=== PATIENT | male | born 1980 | race Caucasian/White ===

== ENCOUNTER 2020-05-24 17:30 | Outpatient (CLI) | payer BC | END 2020-05-24 17:31 | disposition home or self-care (01) | LOC: SLEEPLAB 17:30 | PROVIDERS: ATTEND Family Medicine | DX: G47.33 Obstructive sleep apnea (adult) (pediatric) (principal); F41.8 Other specified anxiety disorders; E66.9 Obesity, unspecified; R06.83 Snoring | CPT/HCPCS: 95806 ==

== ENCOUNTER 2020-07-26 12:40 | Outpatient (CLI) | payer BC | END 2020-07-26 12:41 | disposition home or self-care (01) | LOC: SCSRAD 12:40 | PROVIDERS: ATTEND Family Medicine | DX: R05 Cough (principal) | CPT/HCPCS: 71046 ==

== ENCOUNTER 2021-09-09 11:54 | Outpatient (CLI) | payer BC | END 2021-09-09 11:55 | disposition home or self-care (01) | LOC: CT 11:54 | PROVIDERS: ATTEND Family Medicine | DX: R10.9 Unspecified abdominal pain (principal) | CPT/HCPCS: 74176 ==